=== PATIENT | female | born 1965 | race Two or more races ===

== ENCOUNTER 2021-02-13 20:15 | Inpatient (IN) | payer MEDICARE, OTHER ==
[~2021-02-13] VITALS: Ht 170.2 cm; Wt 78.8 kg
[~2021-02-13 20:15] MED LIST: CARI350T22; GABA300C10; HYDR-2595
[2021-02-13 22:00] VITALS: BP 126/84
[2021-02-13] MEDS ORDERED: MORPHINE SULFATE INJECTION 2 MG/ML SYRG IV PRN (22:00)
[2021-02-13] MEDS ORDERED: NITROGLYCERIN 0.4 MG SL TAB SL PRN (22:00)
[2021-02-13] MEDS ORDERED: ALBUTEROL SULF 2.5 MG/0.5ML(0.5%) NEB SOLN NEB PRN (22:00)
[2021-02-13] MEDS ORDERED: HYDROmorphone HCL 2 MG/ML VL IV PRN (22:00)
[2021-02-13] MEDS ORDERED: ACETAMINOPHEN 500 MG TAB PO PRN (22:00)
[2021-02-13] MEDS ORDERED: GABA-339 PO (22:48)
[2021-02-13] MEDS ORDERED: OXYC-648 PO (22:48)
[2021-02-13] MEDS ORDERED: HYDR-4833 PO (22:48)
[2021-02-13] MEDS ORDERED: ZOLP10TA PO (23:03)
[2021-02-13 23:38] LABS: Basophils # (auto) 0 10 ^3/uL (0-0.2); Basophils % (auto) 0.8 % (0.0-2.0); Eosinophils # (auto) 0 10 ^3/uL (0-0.8); Eosinophils % (auto) 0.1 % (0.0-7.0); Hemoglobin 14.9 g/dL (12.2-16.2); Lymphocytes # (auto) 0.7 10 ^3/uL (0.4-5.4); Lymphocytes % (auto) 17.5 % (10.0-50.0); Mean Corpuscular Hemoglobin 29.5 pg (28.0-32.0); Mean Corpuscular Hgb Conc. 33.1 g/dL (32.0-36.0); Monocytes # (auto) 0.4 10 ^3/uL (0-1.3); Monocytes % (auto) 10.5 % (0.0-12.0); Neutrophils # (auto) 2.7 10 ^3/uL (1.6-8.6); Neutrophils % (auto) 71.1 % (37.0-80.0); Nucleated Red Blood Cells % 0.2 %; Red Blood Cells 5.06 10^6/uL (4.0-5.20); Red Cell Distribution Width 12.8 % (11.8-14.3); White Blood Cell 3.8 10^3/uL (4.4-10.8)
[2021-02-13 23:56] LABS: Albumin 2.7 g/dL (3.4-5.0); BUN/Creatinine Ratio 14.5; Calcium 8.2 mg/dL (8.5-10.1); Potassium 3.2 mmol/L (3.5-5.1)
[2021-02-13 23:58] LABS: Bilirubin, Total 0.3 mg/dL (0.2-1.0); Total Protein 6.6 g/dL (6.4-8.2)
[2021-02-13] MEDS: SODIUM CHLORIDE 0.9% 1,000 ML IV SCH (23:58)
[2021-02-13] MEDS: GABAPENTIN 300 MG CAP PO SCH (23:59)
[2021-02-13] MEDS: oxyCODONE ER 10 MG TAB PO SCH (23:59)
[2021-02-14 00:15] LABS: INR 1.06 (0.9-1.15); Partial Thromboplastin Time 29.7 sec (23.6-33.0)
[2021-02-14 05:00] VITALS: BP 98/69
[2021-02-14 05:19] LABS: Urine Bacteria FEW /hpf (None Seen); Urine Blood Negative /uL (Negative); Urine Mucus FEW (None Seen); Urine Specific Gravity 1.025 (1.001-1.035); Urine WBC 3 /hpf (0 - 5)
[2021-02-14] MEDS: SODIUM CHLORIDE 0.9% 1,000 ML IV SCH ×2 (08:00→18:00)
[2021-02-14] MEDS: cefTRIAXone 1GM/50ML D5W 50 ML IV SCH (08:34)
[2021-02-14] MEDS: GABAPENTIN 300 MG CAP PO SCH ×2 (08:35→22:10)
[2021-02-14] MEDS: oxyCODONE ER 10 MG TAB PO SCH ×2 (08:37→22:10)
[2021-02-14 09:04] VITALS: BP 95/60
[2021-02-14 09:28] VITALS: BP 95/60
[2021-02-14 13:00] VITALS: BP 90/56
[2021-02-14] MEDS: HYDROcodone-ACET 10/325MG TAB PO PRN (13:06)
[2021-02-14 16:36] VITALS: BP 101/68
[2021-02-14 22:00] VITALS: BP 94/77
[2021-02-15] MEDS: SODIUM CHLORIDE 0.9% 1,000 ML IV SCH ×2 (00:45→02:34)
[2021-02-15] MEDS: GABAPENTIN 300 MG CAP PO SCH ×3 (00:45→21:35)
[2021-02-15 05:00] VITALS: BP 103/70
[2021-02-15 06:07] LABS: Basophils # (auto) 0 10 ^3/uL (0-0.2); Basophils % (auto) 0.4 % (0.0-2.0); Eosinophils # (auto) 0 10 ^3/uL (0-0.8); Eosinophils % (auto) 0.1 % (0.0-7.0); Hematocrit 38.6 % (36.0-46.0); Hemoglobin 13.1 g/dL (12.2-16.2); Lymphocytes # (auto) 1.2 10 ^3/uL (0.4-5.4); Lymphocytes % (auto) 36.4 % (10.0-50.0); Mean Corpuscular Hemoglobin 30.1 pg (28.0-32.0); Mean Corpuscular Hgb Conc. 33.8 g/dL (32.0-36.0); Mean Corpuscular Volume 88.8 fL (80.0-100.0); Monocytes # (auto) 0.4 10 ^3/uL (0-1.3); Monocytes % (auto) 13.2 % (0.0-12.0); Neutrophils # (auto) 1.6 10 ^3/uL (1.6-8.6); Neutrophils % (auto) 49.9 % (37.0-80.0); Nucleated Red Blood Cells % 0.4 %; Red Blood Cells 4.35 10^6/uL (4.0-5.20); White Blood Cell 3.2 10^3/uL (4.4-10.8)
[2021-02-15 06:28] LABS: Potassium 3.6 mmol/L (3.5-5.1)
[2021-02-15 06:44] LABS: Albumin 2.3 g/dL (3.4-5.0); BUN/Creatinine Ratio 12.8; Bilirubin, Total 0.2 mg/dL (0.2-1.0); CRP High Sensitivity 0.79 mg/dL (< 0.3); Calcium 7.8 mg/dL (8.5-10.1); Total Protein 5.8 g/dL (6.4-8.2)
[2021-02-15 08:58] VITALS: BP 115/69
[2021-02-15] MEDS: cefTRIAXone 1GM/50ML D5W 50 ML IV SCH (09:06)
[2021-02-15] MEDS: oxyCODONE ER 10 MG TAB PO SCH ×2 (10:50→21:35)
[2021-02-15 12:40] VITALS: BP 109/72
[2021-02-15 16:14] VITALS: BP 124/66
[2021-02-15] MEDS: HYDROmorphone HCL 2 MG/ML VL IV PRN (18:22)
[2021-02-15 22:13] VITALS: BP 121/70
[2021-02-16] MEDS: HYDROmorphone HCL 2 MG/ML VL IV PRN ×4 (00:12→18:29)
[2021-02-16] MEDS: SODIUM CHLORIDE 0.9% 1,000 ML IV SCH (00:45)
[2021-02-16 05:00] VITALS: BP 110/57
[2021-02-16 06:55] LABS: Basophils # (auto) 0 10 ^3/uL (0-0.2); Basophils % (auto) 0.3 % (0.0-2.0); Eosinophils # (auto) 0 10 ^3/uL (0-0.8); Eosinophils % (auto) 0.1 % (0.0-7.0); Hematocrit 38.8 % (36.0-46.0); Hemoglobin 13.4 g/dL (12.2-16.2); Lymphocytes # (auto) 1.4 10 ^3/uL (0.4-5.4); Lymphocytes % (auto) 35.2 % (10.0-50.0); Mean Corpuscular Hemoglobin 31.3 pg (28.0-32.0); Mean Corpuscular Hgb Conc. 34.6 g/dL (32.0-36.0); Mean Corpuscular Volume 90.4 fL (80.0-100.0); Monocytes # (auto) 0.5 10 ^3/uL (0-1.3); Monocytes % (auto) 12.1 % (0.0-12.0); Neutrophils # (auto) 2.1 10 ^3/uL (1.6-8.6); Neutrophils % (auto) 52.3 % (37.0-80.0); Nucleated Red Blood Cells % 0.2 %; Red Blood Cells 4.29 10^6/uL (4.0-5.20); Red Cell Distribution Width 12.7 % (11.8-14.3); White Blood Cell 3.9 10^3/uL (4.4-10.8)
[2021-02-16] MEDS: ALBUTEROL SULF HFA 90MCG INH 200DOSE IN PRN ×2 (07:12→21:42)
[2021-02-16 07:14] LABS: Potassium 3.3 mmol/L (3.5-5.1)
[2021-02-16 07:24] LABS: Albumin 2.6 g/dL (3.4-5.0); Bilirubin, Total 0.3 mg/dL (0.2-1.0); Calcium 8.4 mg/dL (8.5-10.1); Total Protein 6.5 g/dL (6.4-8.2)
[2021-02-16] MEDS: cefTRIAXone 1GM/50ML D5W 50 ML IV SCH (08:32)
[2021-02-16 09:00] VITALS: BP 105/58
[2021-02-16] MEDS: oxyCODONE ER 10 MG TAB PO SCH ×2 (10:25→22:09)
[2021-02-16] MEDS: GABAPENTIN 300 MG CAP PO SCH ×2 (10:25→22:08)
[2021-02-16] MEDS: AZITHROMYCIN 500MG/ 250ML 250 ML IV SCH (10:25)
[2021-02-16 12:35] VITALS: BP 109/72
[2021-02-16 16:57] VITALS: BP 126/65
[2021-02-16 22:00] VITALS: BP 122/82
[2021-02-17] MEDS: HYDROmorphone HCL 2 MG/ML VL IV PRN ×3 (00:31→14:13)
[2021-02-17] MEDS: SODIUM CHLORIDE 0.9% 1,000 ML IV SCH ×2 (00:45→09:46)
[2021-02-17] MEDS: HYDROcodone-ACET 10/325MG TAB PO PRN ×2 (01:15→15:40)
[2021-02-17 05:00] VITALS: BP 113/59
[2021-02-17] MEDS: ALBUTEROL SULF HFA 90MCG INH 200DOSE IN PRN (07:05)
[2021-02-17 07:12] LABS: Basophils # (auto) 0 10 ^3/uL (0-0.2); Basophils % (auto) 0.2 % (0.0-2.0); Eosinophils # (auto) 0 10 ^3/uL (0-0.8); Eosinophils % (auto) 0.1 % (0.0-7.0); Hemoglobin 14.2 g/dL (12.2-16.2); Lymphocytes # (auto) 1.7 10 ^3/uL (0.4-5.4); Lymphocytes % (auto) 38.3 % (10.0-50.0); Mean Corpuscular Hemoglobin 32.1 pg (28.0-32.0); Mean Corpuscular Hgb Conc. 35.4 g/dL (32.0-36.0); Mean Corpuscular Volume 90.7 fL (80.0-100.0); Monocytes # (auto) 0.6 10 ^3/uL (0-1.3); Monocytes % (auto) 12.2 % (0.0-12.0); Neutrophils # (auto) 2.2 10 ^3/uL (1.6-8.6); Neutrophils % (auto) 49.2 % (37.0-80.0); Nucleated Red Blood Cells % 0.2 %; Red Blood Cells 4.41 10^6/uL (4.0-5.20); Red Cell Distribution Width 13.2 % (11.8-14.3); White Blood Cell 4.5 10^3/uL (4.4-10.8)
[2021-02-17 07:22] LABS: Albumin 2.7 g/dL (3.4-5.0); BUN/Creatinine Ratio 11.5; CRP High Sensitivity 0.33 mg/dL (< 0.3); Calcium 8.7 mg/dL (8.5-10.1); Potassium 4.1 mmol/L (3.5-5.1)
[2021-02-17 07:25] LABS: Bilirubin, Total 0.4 mg/dL (0.2-1.0)
[2021-02-17] MEDS: cefTRIAXone 1GM/50ML D5W 50 ML IV SCH (08:25)
[2021-02-17 09:00] VITALS: BP 106/61
[2021-02-17] MEDS: GABAPENTIN 300 MG CAP PO SCH (09:46)
[2021-02-17] MEDS: oxyCODONE ER 10 MG TAB PO SCH (09:46)
[2021-02-17] MEDS: AZITHROMYCIN 500MG/ 250ML 250 ML IV SCH (09:46)
[2021-02-17 13:00] VITALS: BP 105/69
[2021-02-17 16:58] VITALS: BP 104/67
[2021-02-17] MEDS ORDERED: ALBUTEROL SULF 2.5 MG/0.5ML(0.5%) NEB SOLN NEB PRN (17:45)
[2021-02-17] MEDS ORDERED: ASPI1TAB91 PO (17:51)
[2021-02-17] MEDS ORDERED: ASPI-543 PO (17:53)
[2021-02-17] MEDS ORDERED: AZIT250T8 PO (17:54)
[2021-02-17] MEDS ORDERED: [UNRECOGNIZED DRUG - CODE] PO (17:54)
[2021-02-17] MEDS ORDERED: ALBUAER3 IN (17:55)
[2021-02-17] MEDS ORDERED: ZINC SULFATE 220mg CAP or TAB PO SCH (17:56)
[2021-02-17] MEDS ORDERED: ALBU0.084 NEB (17:56)
[2021-02-17] MEDS ORDERED: GABAPENTIN 300 MG CAP PO SCH (22:00)
[2021-02-17] MEDS ORDERED: ALBUTEROL SULF HFA 90MCG INH 200DOSE IN SCH (22:00)
[2021-02-17] MEDS ORDERED: ASCORBIC ACID 500 MG TAB PO SCH (22:00)
[2021-02-18] MEDS ORDERED: AZITHROMYCIN 250 MG TAB PO SCH (10:00)
== END 2021-02-17 22:49 | disposition home or self-care (01) | DRG 177 ==
LOC: WEST WING 20:25 → TELE-WESTW 02-14 01:17 → TELE-EAST 02-14 04:12
PROVIDERS: ADMIT Specialist; ATTEND Specialist
DX: U07.1 COVID-19 (principal); J12.82 Pneumonia due to coronavirus disease 2019; J44.1 Chronic obstructive pulmonary disease with (acute) exacerbation; N39.0 Urinary tract infection, site not specified; J44.0 Chronic obstructive pulmonary disease with (acute) lower respiratory infection; F25.9 Schizoaffective disorder, unspecified; J20.9 Acute bronchitis, unspecified; E86.1 Hypovolemia; E66.9 Obesity, unspecified; D72.819 Decreased white blood cell count, unspecified; E87.6 Hypokalemia; G89.29 Other chronic pain; G43.909 Migraine, unspecified, not intractable, without status migrainosus; K21.9 Gastro-esophageal reflux disease without esophagitis; M54.9 Dorsalgia, unspecified; Z68.25 Body mass index [BMI] 25.0-25.9, adult
CPT/HCPCS: 36415; 71045; 80053; 81001; 82728; 83036; 85025; 85379; 85610; 85730; 86141; 87040; 87086; 87426; 94640; G0378; J0696